=== PATIENT | female | born 1990 | race Caucasian/White ===

== ENCOUNTER 2017-03-10 22:41 | Outpatient (CLI) | payer OTHER, BC ==
[~2017-03-10] VITALS: Ht 160 cm; Wt 114.3 kg
[2017-03-10] MEDS ORDERED: PRENTAB26 PO (23:17)
[2017-03-10 23:18] VITALS: Ht 160 cm; Wt 114.3 kg
[2017-03-10] MEDS ORDERED: PATIENT'S ALLERGY INFO NEEDS ENTERED SCH (23:45)
[2017-03-10] MEDS ORDERED: LACTATED RINGER'S 1000ML 500 ML IV ONE (23:46)
[2017-03-10] MEDS ORDERED: LACTATED RINGER'S 1000ML 1,000 ML IV SCH (23:46)
[2017-03-11] MEDS ORDERED: ONDANSETRON INJ 2 MG/ML 2 ML VIAL IV PRN
[2017-03-11] MEDS ORDERED: BUTORPHANOL TARTRATE 1 MG/ML VIAL IV ONE
[2017-03-13] MEDS ORDERED: MISC-696 (16:29)
[2017-03-14] MEDS ORDERED: MTR600X PO (09:43)
[2017-03-14] MEDS ORDERED: OXYC-57 PO (09:43)
[2017-03-14] MEDS ORDERED: FRRS300 PO (09:43)
[2017-03-14] MEDS ORDERED: CLC100 PO (09:44)
== END 2017-03-11 02:15 | disposition home or self-care (01) ==
LOC: C.OPB 22:41 → C.LD 22:41 → C.OPB 03-11 02:15
PROVIDERS: ATTEND Obstetrics & Gynecology
DX: O62.9 Abnormality of forces of labor, unspecified (principal); Z3A.39 39 weeks gestation of pregnancy

== ENCOUNTER 2017-03-11 08:48 | Inpatient (IN) | payer OTHER, BC ==
[~2017-03-11] VITALS: Ht 160 cm; Wt 115.0 kg
[2017-03-11] VITALS (9 sets, daily range): BP systolic 100–114; BP diastolic 67–77; PULSE 80–84; TEMP 36.5–36.7; O2SAT 94–98; Ht 160 cm; Wt 115.0 kg
[~2017-03-11 08:48] MED LIST: PRENTAB26 PO
[2017-03-11] MEDS ORDERED: LACTATED RINGER'S 1000ML 1,000 ML IV SCH (09:50)
[2017-03-11] MEDS ORDERED: CITRIC ACID/SODIUM CITRATE 15 ML UDC PO ONE (10:00)
--- NOTE | 2017-03-11 10:14 | History & Physical Bridge Note ---
H&P Re-Evaluation Bridge Note: I have examined the patient, reviewed the History & Physical and in the interval since the performance of the History & Physical I have noted the following changes of clinical significance: No changes noted
[2017-03-11] MEDS ORDERED: CEFAZOLIN IV 2,000 MG in DEXTROSE 5% 50ML 50 ML IV ONE (10:15)
[2017-03-11 10:25] LABS: BASO % 0.1 %; BASO ABS # 0.01 K/uL (0-0.2); COMPLETE YES; EOS % 0.2 %; IG% 0.4 %; LYMPH % 18.3 %; LYMPH ABS # 2.41 K/uL (1.2-3.4); MEAN CELL VOLUME 90.2 fL (80-100); MEAN CORPUSCULAR HEMOGLOBIN 30.7 pg (25-34); MEAN PLATELET VOLUME 9.6 fL (7.4-10.4); PLATELET COUNT 230 K/uL (130-400); RED BLOOD COUNT 3.88 M/uL (4.2-5.4)
[2017-03-11] MEDS: LACTATED RINGER'S 1000ML 1,000 ML IV SCH (10:30)
[2017-03-11] MEDS ORDERED: MoRPHine SULFATE PF 1 MG/ML 10 ML AMP/VIAL ONE (10:41)
[2017-03-11] MEDS ORDERED: ONDANSETRON INJ 2 MG/ML 2 ML VIAL ONE (12:45)
[2017-03-11] MEDS ORDERED: PHENYLEPHRINE HCL INJ 10 MG/ML VIAL ONE (12:45)
[2017-03-11] MEDS ORDERED: HYDROCORTISONE ACETATE 25 MG SUPP PR PRN (13:00)
[2017-03-11] MEDS ORDERED: BENZOCAINE 20% AER SPR 82.5 GM CAN EXT PRN (13:00)
[2017-03-11] MEDS ORDERED: MAGNESIUM HYDROXIDE SUSP 30 ML UDC PO PRN (13:00)
[2017-03-11] MEDS ORDERED: SUPERCREAM 0.870 % 15GM JAR EXT PRN (13:00)
[2017-03-11] MEDS ORDERED: LANOLIN OINT EXT PRN ×2 (13:00)
[2017-03-11] MEDS ORDERED: SENNA 8.6 MG TAB PO PRN (13:00)
--- NOTE | 2017-03-11 13:37 | OPERATIVE REPORT ---
DATE OF OPERATION: 03/11/2017 INDICATION FOR SURGERY: This is a 26-year-old G1, P0 at 39+ weeks. has been unremarkable. The patient, however, has had a history of left knee replacement and was recommended by her orthopedic surgeon to have a section. The patient presented to labor and delivery in labor. She was about 3 cm dilated and ciera every 4-5 minutes. Decision was therefore made to proceed with section. POSTOPERATIVE DIAGNOSIS: Same. PROCEDURE: Low transverse section. SURGEON: Dr. Salazar. ANESTHESIA: Spinal. LIFE SCIENCES DIRECTOR TO THE SURGEON: Christelle Eastman RN. ESTIMATED BLOOD LOSS: 600 mL. IV FLUIDS: 1500 mL. URINE OUTPUT: 200 mL clear urine at end of procedure. FINDINGS: Live infant delivered in occiput anterior presentation. There was no nuchal cord. Amniotic fluid was clear. Uterus, tubes, ovaries appeared grossly normal. Abdomen and pelvic exam unremarkable. COMPLICATIONS: None. DRAINS: Cleary catheter. DISPOSITION: Stable to recovery room. PROCEDURE: The patient was taken to the operating room where she was prepped and draped in normal sterile fashion. After time out was called a Pfannenstiel incision was made with a scalpel and carried down to the fascia. Fascia was incised in the midline and extended laterally on both sides. The rectus abdominus muscle was sharply dissected off the fascia. The peritoneum was identified and entered sharply. Once inside the abdomen, an Jose G retractor was placed for retraction. The vesicouterine peritoneum was sharply dissected off the lower segment of the uterus. A transverse incision was made on the lower segment of the uterus and extended laterally on both sides. 's head was delivered. Cord was clamped and cut and handed over to the pediatric team. The placenta was manually removed. Uterus was exteriorized and cleared of all clots and debris. Uterus was closed in 2 layers using Vicryl stitch. There was good hemostasis at the end of the closure. The uterus was returned to the abdominal cavity. Copious amount of irrigation was used to irrigate the abdomen. Both fallopian tubes and adnexa appeared grossly normal. The vesicouterine peritoneum was reapproximated using plain suture. The Jose G retractor was removed and the peritoneum closed with plain suture. The fascia was closed in a running fashion using Vicryl stitch. SubQ space was closed with plain suture and skin was closed with 4-0 Monocryl. All instruments were removed from the abdomen and accounted for x2 including sponges and needles. The patient is doing well and stable in recovery. I attest to the content of the Intraoperative Record and any orders documented therein. Any exceptions are noted below. MTDD
[2017-03-11] MEDS: OXYTOCIN INJ 20 UNITS in LACTATED RINGER'S 1000ML 1,000 ML IV SCH ×2 (13:44→21:58)
[2017-03-11] MEDS ORDERED: SODIUM CHLORIDE 0.9% 1000ML 1,000 ML IV PRN (14:07)
[2017-03-11] MEDS ORDERED: NALOXONE HCL INJ 1 MG in SODIUM CHLORIDE 0.9% 1000ML 1,000 ML IV PRN (14:07)
[2017-03-11] MEDS ORDERED: NALOXONE HCL INJ 0.08 MG in SYRINGE 1.8 ML IV PRN (14:07)
[2017-03-11] MEDS ORDERED: LACTATED RINGER'S 1000ML 500 ML IV PRN (14:07)
[2017-03-11] MEDS ORDERED: NALOXONE HCL 0.4 MG/1 ML VIAL/CARP IV PRN (14:15)
[2017-03-11] MEDS ORDERED: NALBUPHINE HCL INJ 10 MG/ML AMP IV PRN (14:15)
[2017-03-11] MEDS ORDERED: MoRPHine SULFATE PF 1 MG/ML 10 ML AMP/VIAL EPI PRN ×2 (14:15→16:45)
[2017-03-11] MEDS ORDERED: NO NARCOTICS OR SEDATIVES SCH (14:15)
[2017-03-11] MEDS ORDERED: DiphenhydrAMINE HCL 50 MG/ML VIAL IV PRN (14:15)
[2017-03-11] MEDS ORDERED: EpHEDrine SULFATE INJ 50 MG/ML AMP IV PRN (14:15)
[2017-03-11] MEDS ORDERED: ONDANSETRON INJ 2 MG/ML 2 ML VIAL IV PRN (16:45)
[2017-03-11] MEDS ORDERED: PROMETHAZINE HCL INJ 25 MG in SODIUM CHLORIDE 0.9% 50ML 50 ML IV PRN (16:45)
[2017-03-11] MEDS ORDERED: MoRPHine SULFATE 2 MG/ML CARP IV PRN (16:45)
--- NOTE | 2017-03-11 16:53 | Anesthesiology Progress Note ---
Anesthesia Post Op Note Date & Time Mar 11, 2017 at 16:53 Notes Mental Status: alert / awake / arousable, participated in evaluation Pt Amnestic to Procedure: Yes Nausea / Vomiting: adequately controlled Pain: adequately controlled Airway Patency, RR, SpO2: stable & adequate BP & HR: stable & adequate Hydration State: stable & adequate Neuraxial Anesthesia: was administered, sensory block is resolving Anesthetic Complications: no major complications apparent
[2017-03-11] MEDS: KETOROLAC TROMETHAMINE 30 MG/ML VIAL IV. PRN (17:11)
[2017-03-11] MEDS: SIMETHICONE 80 MG CHEW PO SCH ×2 (17:12→19:56)
[2017-03-11] MEDS: DOCUSATE SODIUM 100 MG CAP PO SCH (19:56)
[2017-03-12] VITALS (15 sets, daily range): BP systolic 95–112; BP diastolic 65–80; PULSE 78–91; TEMP 36.4–37.3; O2SAT 95–99
[2017-03-12] MEDS: KETOROLAC TROMETHAMINE 30 MG/ML VIAL IV. PRN ×2 (02:32→08:45)
[2017-03-12] MEDS: LACTATED RINGER'S 1000ML 1,000 ML IV SCH (05:49)
[2017-03-12 07:21] LABS: BASO % 0.2 %; BASO ABS # 0.02 K/uL (0-0.2); COMPLETE YES; EOS % 0.3 %; HEMATOCRIT 29.1 % (37-47); IG% 0.5 %; LYMPH % 22.4 %; LYMPH ABS # 2.73 K/uL (1.2-3.4); MEAN CELL VOLUME 91.2 fL (80-100); MEAN CORPUSCULAR HEMOGLOBIN 30.7 pg (25-34); MEAN CORPUSCULAR HGB CONC 33.7 g/dl (32-36); MEAN PLATELET VOLUME 9.3 fL (7.4-10.4); MONO % 5.5 %; NEUT % 71.1 %; PLATELET COUNT 186 K/uL (130-400); RED BLOOD COUNT 3.19 M/uL (4.2-5.4); WHITE BLOOD COUNT 12.17 K/uL (4.8-10.8)
[2017-03-12] MEDS: FERROUS SULFATE 325 MG TAB PO SCH (08:03)
[2017-03-12] MEDS: DOCUSATE SODIUM 100 MG CAP PO SCH ×2 (08:03→20:37)
[2017-03-12] MEDS: SIMETHICONE 80 MG CHEW PO SCH ×4 (08:03→20:36)
[2017-03-12] MEDS: PRENATAL VITAMIN TAB PO SCH (08:03)
--- NOTE | 2017-03-12 08:35 | Surgery Progress Note ---
Surgery Progress Note Date of Service Mar 12, 2017. 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, No nausea, No vomiting Objective Vital Signs: Date Time Temp Pulse Resp B/P (MAP) Pulse Ox O2 Delivery O2 Flow Rate FiO2 03/12/17 07:30 36.7 78 18 95/65 (75) 97 Room Air 03/12/17 06:15 20 98 03/12/17 05:15 17 98 03/12/17 04:15 17 97 03/12/17 03:45 36.4 79 18 111/71 (84) Room Air 03/12/17 03:15 18 95 03/12/17 02:15 18 96 03/12/17 01:15 19 95 03/12/17 00:25 36.6 91 19 105/69 (81) 97 Room Air 03/12/17 00:25 97 Room Air 03/12/17 00:15 19 97 03/11/17 23:15 17 95 03/11/17 22:15 18 94 03/11/17 21:15 18 95 03/11/17 20:15 18 97 03/11/17 19:35 36.7 84 18 100/67 (78) Room Air 03/11/17 19:14 18 97 03/11/17 18:15 16 98 03/11/17 17:10 36.5 80 16 114/77 (89) 96 Room Air 03/11/17 17:10 18 96 03/11/17 16:15 18 98 03/11/17 16:15 36.5 83 18 107/69 (82) 98 Room Air 03/11/17 16:15 98 Room Air General Appearance: WD/WN, no apparent distress Head: normocephalic, atraumatic Neck: supple, no adenopathy, thyroid normal, no JVD, no carotid bruits, trachea midline Respiratory/Chest: chest non-tender, lungs clear, normal breath sounds, no respiratory distress, no accessory muscle use Cardiovascular: regular rate, rhythm, no edema, no gallop, no JVD, no murmur Abdomen: normal bowel sounds, non tender, non distended, soft, no organomegaly , no pulsatile mass Incision(s): clean, dry, intact, no erythema, no drainage Extremities: normal range of motion, non-tender, normal inspection, no pedal edema, no calf tenderness, normal capillary refill, pelvis stable Laboratory Results: Results Past 24 Hours Test 03/11/17 10:03 03/11/17 15:32 03/12/17 06:50 Range/Units White Blood Count 13.20 12.17 4.8-10.8 K/uL Red Blood Count 3.88 3.19 4.2-5.4 M/uL Hemoglobin 11.9 9.8 12.0-16.0 g/dL Hematocrit 35.0 29.1 37-47 % Mean Corpuscular Volume 90.2 91.2 80-100 fL Mean Corpuscular Hemoglobin 30.7 30.7 25-34 pg Mean Corpuscular Hemoglobin Concent 34.0 33.7 32-36 g/dl Platelet Count 230 186 130-400 K/uL Mean Platelet Volume 9.6 9.3 7.4-10.4 fL Neutrophils (%) (Auto) 76.0 71.1 % Lymphocytes (%) (Auto) 18.3 22.4 % Monocytes (%) (Auto) 5.0 5.5 % Eosinophils (%) (Auto) 0.2 0.3 % Basophils (%) (Auto) 0.1 0.2 % Neutrophils # (Auto) 10.04 8.65 1.4-6.5 K/uL Lymphocytes # (Auto) 2.41 2.73 1.2-3.4 K/uL Monocytes # (Auto) 0.66 0.67 0.11-0.59 K/uL Eosinophils # (Auto) 0.03 0.04 0-0.5 K/uL Basophils # (Auto) 0.01 0.02 0-0.2 K/uL RDW Standard Deviation 47.8 49.1 36.4-46.3 fL RDW Coefficient of Variation 14.8 14.8 11.5-14.5 % Immature Granulocyte % (Auto) 0.4 0.5 % Immature Granulocyte # (Auto) 0.05 0.06 0.00-0.02 K/uL Amniotic Fluid Protein POS Assessment & Plan regular diet c/sed day 1 pt doing well contiue with day # 1 care
[2017-03-12] MEDS ORDERED: ONDANSETRON INJ 2 MG/ML 2 ML VIAL IV PRN (10:00)
[2017-03-12] MEDS ORDERED: OXYCODONE/ACETAMINOPHEN 5-325 TAB PO PRN (10:00)
[2017-03-12] MEDS ORDERED: DC INTRASPINAL MORPHINE ONE (10:00)
[2017-03-12] MEDS ORDERED: DiphenhydrAMINE HCL 50 MG/ML VIAL IV PRN (10:00)
[2017-03-12] MEDS ORDERED: PROMETHAZINE HCL INJ 25 MG in SODIUM CHLORIDE 0.9% 50ML 50 ML IV PRN (10:00)
[2017-03-12] MEDS: OXYCODONE/ACETAMINOPHEN 5-325 TAB PO PRN ×3 (12:17→20:34)
[2017-03-12] MEDS: IBUPROFEN 600 MG TAB PO PRN ×3 (12:18→20:35)
[2017-03-12] MEDS ORDERED: BISACODYL 5 MG TABEC PO ONE (22:00)
[2017-03-13] MEDS: OXYCODONE/ACETAMINOPHEN 5-325 TAB PO PRN ×4 (00:07→19:09)
[2017-03-13] MEDS: IBUPROFEN 600 MG TAB PO PRN ×4 (00:08→19:09)
[2017-03-13 06:44] LABS: HEMATOCRIT 31.8 % (37-47)
[2017-03-13 07:16] VITALS: BP 109/74; PULSE 76; TEMP 36.8; O2SAT 96
[2017-03-13] MEDS: SIMETHICONE 80 MG CHEW PO SCH ×4 (08:02→20:02)
[2017-03-13] MEDS: DOCUSATE SODIUM 100 MG CAP PO SCH ×2 (08:02→20:02)
[2017-03-13] MEDS: PRENATAL VITAMIN TAB PO SCH (08:02)
[2017-03-13] MEDS: FERROUS SULFATE 325 MG TAB PO SCH (08:02)
--- NOTE | 2017-03-13 08:19 | OB/GYN Progress Note ---
TEAROOM HOSTESS Progress Note Date of Service: Mar 13, 2017. Patient is seen and examined. She feels well, no complaints. Pain is under control with oral meds. Ambulating without dizziness. Voiding without difficulty Tolerating regular diet with out N&V Flatus + BM Neg Bleeding is minimal No fever/ chills/ CP/ SOB/ N&V/ Leg pain Breast feeding without problems Date Time Temp Pulse Resp B/P (MAP) Pulse Ox O2 Delivery O2 Flow Rate FiO2 03/13/17 07:16 36.8 76 20 109/74 (86) 96 Room Air 03/12/17 23:15 Room Air 03/12/17 23:15 36.9 86 18 104/68 (80) 96 Room Air 03/12/17 15:45 99 Room Air 03/12/17 15:45 37.3 85 20 112/80 (91) 99 Room Air 03/12/17 12:20 36.7 90 18 110/76 (87) 99 Room Air 03/12/17 09:30 20 98 03/12/17 08:30 18 97 Last 24 Hours Test 03/13/17 06:26 Hemoglobin 10.1 g/dL Hematocrit 31.8 % PE: General: Alert, orientedx3, NAD CVS: S1S2 RRR Lungs; CTAB Abd: soft, NT, fundus firm, below Umbilicus Incision: Clean, dry, intact Perineum intact, Lochia rubra minimal Ext; NT, no edema AP: 26 yo s/p C Section, pod# 2 VSS Afebrile doing well Continue routine postop care Encourage ambulation, PO intake All questions were answered D/C home tomorrow
[2017-03-13] MEDS ORDERED: BISACODYL 10 MG SUPP PR PRN (13:00)
[2017-03-13 15:30] VITALS: BP 117/81; PULSE 88; TEMP 36.6
[2017-03-13] MEDS ORDERED: MISC-696 (16:29)
[2017-03-13 23:45] VITALS: BP 124/82; PULSE 87; TEMP 36.7
[2017-03-14] MEDS: IBUPROFEN 600 MG TAB PO PRN ×3 (02:10→13:11)
[2017-03-14] MEDS: OXYCODONE/ACETAMINOPHEN 5-325 TAB PO PRN ×3 (02:11→13:10)
[2017-03-14 07:27] VITALS: BP 118/88; PULSE 90; TEMP 36.7; O2SAT 100
[2017-03-14] MEDS: FERROUS SULFATE 325 MG TAB PO SCH (08:50)
[2017-03-14] MEDS: PRENATAL VITAMIN TAB PO SCH (08:50)
[2017-03-14] MEDS: SIMETHICONE 80 MG CHEW PO SCH ×2 (08:50→12:10)
[2017-03-14] MEDS: DOCUSATE SODIUM 100 MG CAP PO SCH (08:50)
--- NOTE | 2017-03-14 09:41 | Surgery Progress Note ---
Surgery Progress Note Date of Service Mar 14, 2017. Subjective Post OP Day: 2 + feeling well, + ambulating, + flatus, + pain controlled, + diet, No complaints , No chest pain, No SOB, No bowel movement, No using POLYMER MATERIALS CONSULTANT, No nausea, No vomiting Objective Vital Signs: Date Time Temp Pulse Resp B/P (MAP) Pulse Ox O2 Delivery O2 Flow Rate FiO2 03/14/17 07:27 36.7 90 20 118/88 (98) 100 Room Air 03/13/17 23:45 Room Air 03/13/17 23:45 36.7 87 18 124/82 (96) Room Air 03/13/17 15:30 36.6 88 20 117/81 (93) Room Air 03/13/17 15:30 Room Air General Appearance: WD/WN, no apparent distress Head: normocephalic, atraumatic Neck: supple, no adenopathy, thyroid normal, no JVD, no carotid bruits, trachea midline Respiratory/Chest: chest non-tender, lungs clear, normal breath sounds, no respiratory distress, no accessory muscle use Cardiovascular: regular rate, rhythm, no edema, no gallop, no JVD, no murmur Abdomen: normal bowel sounds, non tender, non distended, soft, no organomegaly , no pulsatile mass Incision(s): clean, dry, intact, no erythema, no drainage Assessment & Plan c/sed day 3 pt doing well d/c home with instructions c/sed day 1 pt doing well contiue with day # 1 care
[2017-03-14] MEDS ORDERED: FRRS300 PO (09:43)
[2017-03-14] MEDS ORDERED: MTR600X PO (09:43)
[2017-03-14] MEDS ORDERED: OXYC-57 PO (09:43)
[2017-03-14] MEDS ORDERED: CLC100 PO (09:44)
--- NOTE | 2017-03-14 09:45 | Discharge Instructions ---
Discharge Instructions Date of Service Mar 14, 2017. Admission Reason for Admission: R/O Ruptured Membrane Discharge Discharge Diagnosis / Problem: postop Discharge Goals Goal(s): Routine recovery after delivery Activity Recommendations Activity Limitations: as noted below ACTIVITY RECOMMENDATIONS: * Gradual return to full activity over the next 2-3 weeks. * No lifting - nothing heavier than baby over the next 2-3 weeks. * Do not engage in vigorous exercise, sexual activity or sports until cleared by your physician. * Do not drive or operate any motorized equipment until cleared by your physician. * You may shower/bathe daily. BREAST CARE: If you are not breast feeding: * Wear a supportive bra 24 hours a day for one to two weeks. * Avoid stimulating your breasts and nipples as much as possible during the first few weeks after delivery. * When taking a shower, have the warm water hit your back, not breasts. * When your breasts feel full, apply ice packs. Usually three to four times a day helps ease the discomfort. * Take a mild pain medication (Tylenol/Motrin) when you are uncomfortable. If breast feeding: * Use breast milk to lubricate nipples. Lansinoh cream may be used for sore nipples. You do not need to remove cream prior to breast feeding. If using a different brand of cream, check the label for directions regarding removal of cream prior to nursing. * Wear a supportive bra. * If having problems with breasts or breast feeding, call a art consultant or your health care provider. OVER THE COUNTER MEDICATION: * For discomfort or pain, you may use Acetaminophen (Tylenol), Ibuprofen (Advil ), or Naproxen (Aleve) following the package directions. * For constipation you may use Colace following the package directions. SPECIAL CARE INSTRUCTIONS: When you are discharged from the hospital, it is important for you to follow the instructions listed below: * During the first week at home, you should be able to care for yourself and your baby. In addition, the usual light household activities are encouraged. * Limit your activities to the way you feel. Do not try to clean the house or move furniture. Be sensible. * If you actively engage in sports and have done so up until the time of your delivery, you may resume these activities as soon as you feel able. This may take up to one month or even longer. Use good judgment. * Continue to take your vitamins for at least six weeks after the of your baby. * Your diet need not be limited unless you were on a special diet before your delivery. Breast-feeding mothers need around 2500 calories per day and at least 64-80 ounces of fluid per day (8 to 10 glasses). * You should eat foods from the four major food groups. Crash diets or fad diets are to be avoided. Eating lean meats, fresh fruits and vegetables, low-fat dairy products, high fiber foods and a regular exercise program, will help you get back to your pre- weight without putting your health at risk. * Constipation is sometimes a problem after delivery. Take a mild laxative as needed. If breast feeding, Milk of Magnesia is acceptable to use. You may use a suppository or Fleets enema if no episiotomy. * A daily shower or tub bath is suggested. Be sure to thoroughly and gently dry the perineum. * A bloody vaginal discharge will usually continue until around four weeks post . A small amount of bleeding may continue for as long as six weeks. Vaginal discharge changes from the bright red bleeding after delivery to pink then brownish and finally yellowish-pink before becoming white and disappearing. * Bleeding may increase with activity. Your first period may come in 4-8 weeks. If you are breast feeding, your period may be delayed even longer. * Philo (sex) can begin whenever both you and your partner feel comfortable and do not have any form of genital infection. It is recommended that you wait at least six weeks for internal and external healing to occur. If you have questions, please talk to your health care practitioner. A condom should be used to prevent infection and . * Foreplay, gentle intercourse and lubrication is very important the first several times to prevent pain. A water-based lubricant such as K-Y jelly or Astroglide may be used. * Tampons and/or Douching should be avoided until after six weeks check-up. * If you have RH negative blood and your baby is RH positive, you will receive RHOGAM by injection prior to discharge. The nurse will give you a card to keep with you that has the date and place that you received RHOGAM after delivery. * During your care, you had a Rubella screen done to check for the presence of rubella antibodies in your blood. If your test was negative, you will receive a Rubella vaccine prior to discharge. This vaccine may cause a fever, soreness at the injection site and flu-like symptoms. If these symptoms persist, notify your health care practitioner. is not advised for three months after a Rubella vaccine. * Verbalizes understanding of car seat law as reviewed with patient nursing. * Car Seat hand-out given and reviewed with patient by nursing. * Shaken baby information reviewed with patient by nursing. Call you doctor if: * Heavy bleeding (saturating several pads an hour) or passing clots the size of your fist. * A fever >101 degrees F (38.3 degrees C) on two occasions four hours apart and /or chills. * Unusual pain in the pelvic or vaginal areas. Pain should improve each day . * Call the doctor for any increased redness, drainage or swelling around the incision and any pain unrelieved by prescribed pain medication. * Any signs or symptoms of phlebitis (possible blood clots forming in the veins ): leg pain, warm, red or swollen area on leg. * "Baby Blues" lasting longer than two weeks. If you have any questions or concerns, call your health care practitioner at . FOLLOW-UP VISIT: * Incision check (staple removal) in 1 week. Please call doctor's office at to set up appointment. * Please call the office at to schedule a 6 week examination. It is important you keep this appointment. * It is important for you to make arrangements for either yearly or twice yearly check-ups thereafter. . Current Hospital Diet Patient's current hospital diet: Regular OB Diet Discharge Diet Recommended Diet: Regular Diet Procedures Procedures Performed: LOW TRANSVERSE SECTION Pending Studies Studies pending at discharge: no Medical Emergencies . Who to Call and When: Medical Emergencies: If at any time you feel your situation is an emergency, please call [phone] immediately. . Non-Emergent Contact Non-Emergency issues call your: Specialist . . "Provider Documentation" section prepared by Ronny Salazar. . VTE Core Measure Inpt VTE Proph given/why not?: Treatment not indicated
[2017-03-14 13:30] VITALS: BP_DIAS 88; PULSE 90; TEMP 36.7
--- NOTE | 2017-03-15 06:31 | Progress Note ---
Progress Note Date of Service Mar 15, 2017. Progress Note Addendum: Correction; Pt had c/sec because of her hx of left hip replacement not knee replacement as stated in OP note
--- NOTE | 2017-03-15 11:15 | DISCHARGE SUMMARY ---
CHIEF COMPLAINT: 1. at term, in labor. 2. History of left hip replacement. The patient was recommended by orthopedics to have section. HISTORY OF PRESENT ILLNESS: This is a 26-year-old G1, P0, at 39+ weeks, whose has been unremarkable. The patient has a history of left hip replacement and was recommended by orthopedics to have section. The patient presented to labor and delivery on 03/11/2017 with contractions. She was found to be in labor. Decision was, therefore, made to proceed with section. The patient had initially been scheduled for section on 03/14/2017. Surgery was unremarkable. Details of surgery are in the surgical note. The patient delivered a live infant, female, weighing 6 pounds 9 ounces, was 8 and 9. Postop care was unremarkable. The patient did well on postop day 1, 2, and was discharged home on day 3. PAST MEDICAL HISTORY: None. PAST SURGICAL HISTORY: None except for dental surgery. SOCIAL HISTORY: The patient denies tobacco, drug or alcohol use. ALLERGIES: THE PATIENT IS ALLERGIC TO SHELLFISH. REVIEW OF SYSTEMS: Negative except as dictated under HPI. PHYSICAL EXAMINATION: GENERAL: Well-developed, well-nourished white female, in no acute distress. VITAL SIGNS: On 03/14/2017 showed temperature of 36.7, pulse of 90, respiration of 20, blood pressure of 118/88. HEART: S1, S2, regular rhythm and rate. LUNGS: Clear to auscultation bilaterally. ABDOMEN: Nontender, nondistended. Incision looked clean, dry and intact. EXTREMITIES: No cyanosis, clubbing or edema. LABORATORY DATA: On 03/13/2017 showed H&H of 10.1 and 31.8. CONDITION ON DISCHARGE: Stable. OPERATION: Primary section. DISCHARGE DIAGNOSIS: Postop after section. PLAN ON DISCHARGE: The patient is discharged home with instructions regarding activity, diet, followup appointment and medications.
== END 2017-03-14 13:30 | disposition home or self-care (01) | DRG 766 ==
LOC: C.OPB 08:48 → C.LD 08:49 → C.OPB 09:52 → C.LD 09:52 → C.OBG 15:46
PROVIDERS: ADMIT Obstetrics & Gynecology; ATTEND Obstetrics & Gynecology
PROC: 10D00Z1 Extraction of Products of Conception, Low, Open Approach (ICD-10-PCS; principal; 2017-03-11 10:30)
DX: O26.893 Other specified pregnancy related conditions, third trimester (principal); Z96.642 Presence of left artificial hip joint; Z3A.39 39 weeks gestation of pregnancy; Z37.0 Single live birth